=== PATIENT | male | born 1995 | race Caucasian/White ===

== ENCOUNTER 2020-05-09 09:01 | Emergency (ER) | payer OTHER ==
[~2020-05-09] VITALS: Ht 170.2 cm; Wt 99.8 kg
[2020-05-09] MEDS ORDERED: OMEPRAZOLE 20 M20 M1 PO (09:09)
[2020-05-09 09:23] LABS: HEMOGLOBIN 18.1 gm/dL (14.0-18.0); MCH 29.6 pg (26.0-34.0); MCHC 34.2 g/dL (28.0-37.0); MCV 86.5 fL (80.0-100.0); MPV 7.2 fl. (7.2-11.1); NUCLEATED RBCS 0 /100WBC; PLATELET COUNT* 397 thou/uL (150-400); RBC 6.12 mil/uL (4.50-6.00); WBC 12.6 thou/uL (4.0-11.0)
[2020-05-09 09:35] LABS: CALCIUM 10.1 mg/dL (8.5-10.1); CREATININE 1.3 mg/dL (0.6-1.3); POTASSIUM 4.5 mmol/L (3.5-5.1)
[2020-05-09 09:39] LABS: TOTAL BILIRUBIN 1.4 mg/dL (<0.1-1.0)
[2020-05-09 09:53] LABS: ABSOLUTE LYMPHOCYTES 0.1 thou/uL (0.8-5.3); ABSOLUTE MONOCYTES 0.4 thou/uL (0.0-1.2); ABSOLUTE NEUTROPHILS 12.1 thou/uL (1.6-8.1); PLATELET ESTIMATE ADEQUATE
[2020-05-09] MEDS ORDERED: ZOFRAN ODT4 MG DISSOLVE (10:18)
[2020-05-09 11:10] VITALS: BP 129/67
--- NOTE | 2020-05-10 11:20 | EKG ---
[place] [address] ELECTROCARDIOGRAM REPORT Name: DANILO DILLON Room: [facility]#: [id number] Admission: 05/09/20 Attend Phys: Discharge: 05/09/20 Date of : [birth year] Date of Service: 05/09/20920 Report #: [id number] THIS REPORT FOR: //name// [facility] ED Test Date: 2020-05-09 Test Time: 09:21:55 Pat Name: DANILO DILLON Department: Room: Gender: Freight Booker: [facility] : 1995 Requested By: Sarbjit Mckeon Order Number: [id number] MD: Adrian Goodman Measurements Intervals [place] Rate: 93 P: 65 RI: 123 QRS: 74 QRSD: 89 T: 20 QT: 344 QTc: 428 Interpretive Statements Sinus rhythm No previous ECG available for comparison Electronically Signed On 05-10-2020 11:20:10 CDT by Adrian Goodman [email or web address] <ELECTRONICALLY SIGNED> By: Adrian Goodman MD, [facility] 05/10/20 1120 0 0 Adrian Goodman MD, FACC /EPI
== END 2020-05-09 11:10 | disposition home or self-care (01) ==
LOC: M.ERS 09:01
PROVIDERS: Emergency Medicine Emergency Medical Services
DX: K52.9 Noninfective gastroenteritis and colitis, unspecified (principal)